=== PATIENT | male | born 1995 | race Two or more races ===

== ENCOUNTER 2025-06-21 15:38 | Outpatient (AMB) | payer OTHER, SELFPAY ==
--- OUTSIDE RECORDS SUMMARY | 2024-04-29 12:00 | XMS_ITS ---
Author Organization [facility] Address [address] [facility] [place] [address] Care Team Providers Care Director Industrial Nursing Name Role Phone Vicky Mcfarland Primary Care Provider [phone] REASON FOR VISIT CPE Encounters Encounter Location Date Provider Diagnosis [facility] Jessica [address] [place] [address] 04/29/20 24 Vicky Mcfarland Plan Of Treatment No Information Progress Notes * GLORIA LARSONKENNAOB:1995 (30 yo M)Acc No.[id number]:04/29/2024 Patient: LOR AGUILAR Provider: Obdulio Mcfarland MD :1995 A ge:29 Y S ex:Male Date:04/29/2024 Address:[address] [place] [address], [address], [facility] Subjective: * Chief Complaints: * 1 . CPE. * Medical History: Objective: * Vitals: Assessment: Plan: * Treatment: * Images: Billing Information: * Visit Code: * Procedure Codes: Care Plan Details* * Electronic signature of Vicky aguero MD on 06/21/2025 at 09:45 PM EDT Sign off status: Pending * Provider: Obdulio Mcfarland MD Date: 0 04/29/2024 Generated for Vashti guerrero/Fide/eTbettysmitting on: 09:45 PM EDT
--- OUTSIDE RECORDS SUMMARY | 2024-06-16 12:15 | XMS_ITS ---
Author Organization [facility] Address [address] [facility] [address] Care Team Providers Care Industrial Boilermaker Name Role Phone Vicky Mcfarland Primary Care Provider REASON FOR VISIT 1 month f/u Encounters Encounter Location Date Provider Diagnosis [facility] Jessica [address] [place] [address] 06/16/20 Vicky Mcfarland Plan Of Treatment No Information Progress Notes * GLORIA LARSONKENNAOB:1995 (30 yo M)Acc No.[id number]:06/16/2024 Progress Notes Patient: LOR AGUILAR Provider: Obdulio Mcfarland MD :1995 A ge:29 Y S ex:Male Date:06/16/2024 Address:[address] [place] [address], [address], [place], [place] Subjective: * Chief Complaints: * 1 . 1 month f/u. * Medical History: Objective: * Vitals: Assessment: Plan: * Treatment: * Images: Billing Information: * Visit Code: * Procedure Codes: Care Plan Details* * Electronic signature of Vicky aguero MD on 06/21/2025 at 09:46 PM EDT Sign off status: Pending * Provider: Obduilo Mcfarland MD Date: Generated for Vashti guerrero/Fide/eTransmitting on: 09:46 PM EDT
--- NOTE | 2025-06-21 15:46 | MHC.PC.OV ---
Vital Signs 06/21/25 16:04 Height 5 ft 7.52 in Weight 209 lb BMI 32.2 BP 129/65 Blood Pressure Location Lt brachial Position Sitting Respiration 16 Pulse 79 Pulse Source Pulse Oximeter Temp 97.9 F Temp Source Oral Pulse Oximetry (%) 98 Oxygen Delivery Method Room Air Intake Visit Reasons: MATERIAL COORDINATOR Anxiety Timber Trimmer Required: No Allergies No Known Allergies Allergy (Verified 06/21/25 15:46) Tobacco use date assessed: 06/21/25 Dental Screening Dental Screen Date: 06/21/25 Did you have a dental visit in the last 12 months?: Yes Did you have a dental problem in the last 6 months where you did not have access to dental care?: No Was dental information given to patient?: Patient has dentist HPI HPI Comments History of Present Illness Details Consent Patient was informed and verbally consented to the use of an ambient scribe for clinic note documentation during this visit. History of Present Illness The patient is a 30-year-old male presenting with exacerbation of anxiety symptoms. Generalized Anxiety Disorder: The patient reports a history of anxiety that has been present for most of his life, with a significant worsening over the past few months. He was previously prescribed buspirone 10 mg by his former physician, which he found helpful, but he has been off the medication for several months due to the closure of his previous doctor's office. The patient describes his anxiety as overwhelming, with persistent thoughts about various aspects of his life, including work and personal relationships, which have intensified recently. He has not sought therapy or seen a behavioral health consultant, partly due to personal life changes, including a breakup and moving out, which he initially managed but have since contributed to increased anxiety. 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 Vital signs: Within normal limits. HEENT: Normocephalic, atraumatic. PERRLA, EOMI. Conjunctiva clear, sclera anicteric. Oropharynx clear, mucous membranes moist. TMs intact bilaterally. Neck: Supple, no lymphadenopathy, no thyromegaly, no JVD or carotid bruits. Cardiovascular: RRR, normal S1/S2, no murmurs, rubs, or gallops. Peripheral pulses 2+ and symmetric. No edema. Respiratory: Lungs clear to auscultation bilaterally, no wheezes, rales, or rhonchi. Normal effort. Abdomen: Soft, non-tender, non-distended. Normoactive bowel sounds. No hepatosplenomegaly, no masses. MSK: Full range of motion, no joint swelling or deformity. Normal gait. Skin: Warm, dry, intact. No rashes, lesions, or pallor. Neuro: Alert and oriented x3. Cranial nerves II-XII intact. Strength 5/5 throughout. Sensation intact. Reflexes 2+ symmetric. Normal coordination and gait. Psych: Anxious mood and affect. Generalized anxiety disorder noted. Normal judgment and insight. Plan 1. Generalized Anxiety Disorder - Restart buspirone 10 mg and monitor response over the next two weeks. - Conduct blood tests to assess overall health status. - Referral to behavioral health for therapy and further management. - Follow-up appointment scheduled in two weeks to evaluate treatment efficacy and adjust as necessary. Discussion Notes I discussed with the patient the plan to restart buspirone and the importance of monitoring his symptoms over the next two weeks. We also talked about the need for blood tests to check his overall health and the referral to behavioral health for additional support. I emphasized the importance of follow-up in two weeks to assess the effectiveness of the treatment and make any necessary adjustments. Patient Instructions - Take buspirone 10 mg as prescribed and monitor for any changes in symptoms. - Attend the follow-up appointment in two weeks. - Complete blood tests as ordered. - Follow up with behavioral health as referred. Medical Decision Making The decision to restart buspirone was based on the patient's previous positive response to the medication and the current exacerbation of anxiety symptoms. Blood tests were ordered to rule out any underlying conditions that might be contributing to his symptoms. A referral to behavioral health was made to provide the patient with additional support and therapy options. Total time spent caring for the patient today was 30 minutes. This includes time spent before the visit reviewing the chart, time spent documenting, and time spent reviewing laboratory results, diagnostic imaging, medications, performing a medically necessary evaluation, counseling on diagnoses, care coordination, ordering appropriate tests, ordering appropriate medications. [facility] Family History (Updated 06/21/25 @ 16:08 by Ramses Shetty MA) Mother No problems noted. Father No problems noted. Social History Housing: House Patient Tobacco Use Status: Never used Tobacco service: No Current occupational status: employed Cognitive needs: No Hearing needs: No Vision needs: Yes (rx glasses) Questionnaire PHQ-9 Over the last 2 weeks, how often have you been bothered by any of the following problems? 1. Little interest or pleasure in doing things: several days 2. Feeling down, depressed, or hopeless: several days 3. Trouble falling or staying asleep, or sleeping too much: more than half the days 4. Feeling tired or having little energy: several days 5. Poor appetite or overeating: not at all 6. Feeling bad about yourself - or that you are a failure or have let yourself or your family down: several days 7. Trouble concentrating on things, such as reading the newspaper or watching television: several days 8. Moving or speaking so slowly that other people could have noticed. Or the opposite - being so fidgety or restless that you have been moving around a lot more than usual: not at all 9. Thoughts that you would be better off or of hurting yourself in some way: not at all Total score: 7 Source: Developed by Drs. Richard Winn, Mena Macias, Dominik Geiger and colleagues, with an educational familia from [employer] Thrive Questionnaire Date Thrive assessed: 06/21/25 I am a: Patient What is your living situation today?: I have a steady place to live Within the past 12 months, did the food you bought not last and you didn't have the money to get more?: Never true Within the past 12 months, did you worry whether your food would run out before you got money to buy more?: Never true Do you have trouble paying for medicines?: No Do you have trouble getting transportation to medical appointments?: Yes Do you have trouble paying your heating and electricity bill?: No Do you have trouble taking care of your child, family member or friend?: No Do you have trouble with day-to-day activities such as bathing, preparing meals, shopping, managing finances, etc.?: No Are you currently unemployed and looking for a job?: No Are you interested in more education?: No Please select the resources that you would like help with: None Currently or been in a relationship where the following occur: No concerns reported THRIVE Score: 1 AUDIT C Alcohol Use Questionnaire (AUDIT-C) 1. How often do you have a drink containing alcohol?: 2-4 times a month 2. How many drinks containing alcohol do you have on a typical day when you are drinking?: 3 or 4 3. How often do you have six or more drinks on one occasion?: Never Total Score: 3 SARAH-7 AMB Questionnaire SARAH-7 Date SARAH - 7 assessed: 06/21/25 Feeling nervous, anxious, or on edge: 3 = Nearly every day Not being able to stop or control worryin = Nearly every day Worrying too much about different things: 3 = Nearly every day Trouble relaxin = Nearly every day Being so restless that it is hard to sit still: 2 = More than half the days Becoming easily annoyed or irritable: 1 = Several days Feeling afraid as if something awful might happen: 3 = Nearly every day Total SARAH-7 score (0-4 normal; 5-9 mild; 10-14 moderate; 15-21 severe): 18 Source: Developed by Drs. Richard iWnn, Mena Macias, Dominik Geiger and colleagues, with an educational familia from [employer] Physical exam (Primary Care) Vital Signs: Last Vital Signs Temp 97.9 F 06/21/25 16:04 Pulse 79 06/21/25 16:04 Resp 16 06/21/25 16:04 BP 129/65 06/21/25 16:04 Pulse Ox 98 06/21/25 16:04 Oxygen Delivery Method Room Air 06/21/25 16:04 BMI result Body Mass Index 32.2 Tobacco/Smoking Status: Tobacco use Status Tobacco use date assessed 06/21/25 06/21/25 15:48 Patient Tobacco Use Status Never used Tobacco 06/21/25 15:48 PHQ-9: PHQ-9 Score PHQ-9: Total score 7 06/21/25 15:48 Thrive Assessment: Date of Thrive Assessment Date Thrive assessed 06/21/25 06/21/25 15:48 Currently or been in a relationship where the following occur: No concerns reported Coding Level of Care Code New Pt Level 4 (37327) Diagnoses Generalized anxiety disorder F41.1 Class 1 obesity E66.9 Assessment & Plan Assessment & Plan (1) Generalized anxiety disorder: Code(s): F41.1 - Generalized anxiety disorder (2) Class 1 obesity: Code(s): E66.9 - Obesity, unspecified Plan Orders: Orders Complete Blood Count Auto Diff Today Z13.9 - Encounter for screening, unspecified Comprehensive Met. Panel Today Z13.9 - Encounter for screening, unspecified Hepatitis B Surface Antigen Today Z13.9 - Encounter for screening, unspecified TSH reflex Free T4 Today Z13.9 - Encounter for screening, unspecified UA CC w/rflx Micro + Cult Today Z13.9 - Encounter for screening, unspecified HIV Ab/Ag Today Z13.9 - Encounter for screening, unspecified Magnesium Today Z13.9 - Encounter for screening, unspecified Vitamin D 1,25 dihydroxy Today Z13.9 - Encounter for screening, unspecified Hemoglobin A1c Today Z13.9 - Encounter for screening, unspecified Hepatitis B Surface Antibody Today Z13.9 - Encounter for screening, unspecified Hepatitis C Antibody Today Z13.9 - Encounter for screening, unspecified Lipid Panel Today Z13.9 - Encounter for screening, unspecified Vitamin B2 (Riboflavin) Today Z13.9 - Encounter for screening, unspecified Referrals Behavioral Health Referral F41.1 - Generalized anxiety disorder Medications: New buspirone 10 mg PO ONCE 30 tabs 0RF
[2025-06-21 16:04] VITALS: BP 129/65; PULSE 79; RESP 16; TEMP 36.6; O2SAT 98; BMI 32.2
--- OUTSIDE RECORDS SUMMARY | 2025-06-21 21:46 | XMS_ITS | Clinical Summary ---
Author Organization [facility] Address [address] [place] [address] Care Team Providers Care Knot Tier Name Role Phone Naomi Rosales MD Primary Care Provider [phone] Allergies No known active allergies Medications No known medications Social History Tobacco Use Types Packs/Day Years Used Date Smoking Tobacco: Never Smokeless Tobacco: Never Sex and Gender Information Value Date Recorded Sex Assigned at Not on file Legal Sex Male 5:47 PM EDT Gender Identity Not on file Sexual Orientation Not on file Last Filed Vital Signs Vital Sign Reading Time Taken Comments Blood Pressure 144/82 01/26/2020 5:57 PM EDT Pulse 104 01/26/2020 5:57 PM EDT Temperature 36.9 C (98.5 F) 01/26/2020 5:57 PM EDT Respiratory Rate - - Oxygen Saturation 97% 01/26/2020 5:57 PM EDT Inhaled Oxygen Concentration - - Weight - - Height - - Body Mass Index - - Plan of Treatment Health Maintenance Due Date Last Done Comments Hepatitis C Virus Screening 1995 HIV Screening 2010 DTaP/Tdap/Td Vaccines (1 - Tdap) 2016 Hepatitis B Vaccines (1 of 3 - 19+ 3-dose series) 2016 Influenza Vaccine 03/31/2025 COVID-19 Vaccine (2023-2 5 season) 2025 HPV Vaccines (No Doses Required) Completed Pneumococcal Vaccine: Pediat lew (0-5 Years) and At-Risk Patients (6 to 49 Years) Aged Out No longer eligible b ased on patient's age to complete this topic Insurance BLUE CROSS OUT OF STATE - HMO Care Teams Knot Tier Relationship Specialty Start Date End Date Naomi Rosales MD [address] [place] [id number] PCP - General Pediatric, General 01/26/20
--- OUTSIDE RECORDS SUMMARY | 2025-06-21 21:46 | XMS_ITS | Patient Health Record ---
Author Organization [facility] Address [address] [place] [address] Care Team Providers Care Stopper Grinder Name Role Phone Bruna Vicky Primary Care Provider [phone] Allergies Allergen (clinical drug ingredient) Drug/Non Drug Allergy documented on EMR Reaction Allergy Type Onset Date Status SEASONAL ALLERGIES (uncoded) Unknown Allergy Active Reason For Referral No Information Medications Medication SIG (Take, Route, Fr equency, Duration) Notes Start Date End Date Status busPIRone HCl 15 MG 1 tablet Orally Twic e a day; Duration: 30 days 05/13/2024 Active Social History Tobacco Use: Social History Observation Description Date Details (start date - stop date) Never Smoker NA - NA Tobacco use other than smoking: Question Answer Notes Are you an other tobacco user? M [facility] Tobacco Control (Standard) Question Answer Notes Tobacco use: Nonsmoker AUDIT-C (Standard) Question Answer Notes Did you have a drink containing alcohol in the p ast year? No Points 0 Interpretation Negative Problems Problem Type SNOMED Code ICD Code Onset Dates Problem Status W/U Status Risk Notes Problem Anxiety (21530481) Anxiety (F41.9) Active confirmed Problem Vitamin D deficiency (58829022) Vitamin D deficiency (E55.9) Active confirmed Problem Obesity (339144105) Obesity (BMI 30-39.9) (E66.9) Active confirmed Plan Of Treatment Pending Test Test Name Order Date EKG 05/13/2024 Insurance Providers Payer Name Payer Address Payer Phone Subscriber Number Group Number Insured Name Patient Relationship to Insured Coverage Start Date Coverage End Date [id number] Master [address] [place] [phone] [id number] LOR LARSON Self - patient is the insured
== END 2025-06-21 16:41 | disposition home or self-care (01) ==
LOC: HO.HMCFMS 15:39
PROVIDERS: PCP Student in an Organized Health Care Education/Training Program; Visit Provider Student in an Organized Health Care Education/Training Program
DX: F41.1 Generalized anxiety disorder (principal); E66.9 Obesity, unspecified

== ENCOUNTER 2025-07-03 08:56 | Outpatient (REF) | payer OTHER, SELFPAY ==
--- OUTSIDE RECORDS SUMMARY | 2024-04-29 11:00 | XMS_ITS ---
Author Organization [facility] Address [address] [facility] [place] [address] Care Team Providers Care Soaking Pit Operator Name Role Phone Vicky Mcfarland Primary Care Provider REASON FOR VISIT CPE Encounters Encounter Location Date Provider Diagnosis [facility] Jessica [address] [place] [address] 04/29/20 24 Vicky Mcfarland Plan Of Treatment No Information Progress Notes * GLORIA LARSONKENNAOB:1995 (30 yo M)Acc No.[id number]:04/29/2024 Patient: LOR AGUILAR Provider: Obdulio Mcfarland MD :1995 A ge:29 Y S ex:Male Date:04/29/2024 Address:[address] [place] [address], [address], [facility] Subjective: * Chief Complaints: * 1 . CPE. * Medical History: Objective: * Vitals: Assessment: Plan: * Treatment: * Images: Billing Information: * Visit Code: * Procedure Codes: Care Plan Details* * Electronic signature of Vicky augero MD on 07/03/2025 at 09:40 AM EST Sign off status: Pending * Provider: Obdulio Mcfarland MD Date: 0 04/29/2024 Generated for Vashti guerrero/Fide/Terranceitting on: 09/02/2024 09:40 AM EST
--- OUTSIDE RECORDS SUMMARY | 2024-06-16 11:15 | XMS_ITS ---
Author Organization [facility] Address [address] [facility] [place] [address] Care Team Providers Care Paper Mill Supervisor Name Role Phone Vicky Mcfarland Primary Care Provider [phone] REASON FOR VISIT 1 month f/u Encounters Encounter Location Date Provider Diagnosis [facility] Jessica [address] [place] [address] 06/16/20 Vicky Mcfarland Plan Of Treatment No Information Progress Notes * GLORIA LARSONKENNAOB:1995 (30 yo M)Acc No.[id number]:06/16/2024 Progress Notes Patient: LRO AGUILAR Provider: Obdulio Mcfarland MD :1995 A ge:29 Y S ex:Male Date:06/16/2024 Address:[address] [place] [address], [address], [place], [place] Subjective: * Chief Complaints: * 1 . 1 month f/u. * Medical History: Objective: * Vitals: Assessment: Plan: * Treatment: * Images: Billing Information: * Visit Code: * Procedure Codes: Care Plan Details* * Electronic signature of Vicky aguero MD on 07/03/2025 at 09:40 AM EST Sign off status: Pending * Provider: Obdulio Mcfarland MD Date: Generated for Vashti guerrero/Fide/eTbettysmitting on: 09/02/2024 09:40 AM EST
--- OUTSIDE RECORDS SUMMARY | 2025-07-03 09:40 | XMS_ITS | Clinical Summary ---
Author Organization [facility] Address [address] [place] [address] Care Team Providers Care Pancake Professional Name Role Phone Naomi Rosales MD Primary Care Provider [phone] Allergies No known active allergies Medications No [...] OUT OF STATE - HMO Care Teams Pancake Professional Relationship Specialty Start Date End Date Naomi Rosales MD [address] [place] [id number] PCP - General Pediatric, General 01/26/20
--- OUTSIDE RECORDS SUMMARY | 2025-07-03 09:41 | XMS_ITS | Patient Health Record ---
Author Organization [facility] Address [address] [place] [address] Care Team Providers Care Mobile Security Specialist Name Role Phone Bruna Vicky Primary Care Provider Allergies Allergen (clinical drug ingredient) Drug/Non Drug [...] Are you an other tobacco user? M [facility] Tobacco Control (Standard) Question Answer Notes Tobacco use: Nonsmoker AUDIT-C (Standard) Question Answer Notes Did you have a drink containing alcohol in the p ast year? No Points 0 Interpretation Negative Problems Problem Type SNOMED Code ICD Code Onset Dates Problem Status W/U Status Risk Notes Problem Anxiety (01116584) Anxiety (F41.9) Active confirmed Problem Vitamin D deficiency (24957183) Vitamin D deficiency (E55.9) Active confirmed Problem Obesity (480328729) Obesity (BMI 30-39.9) (E66.9) Active confirmed Plan Of Treatment Pending Test Test Name Order Date EKG 05/13/2024 Insurance Providers Payer Name Payer Address Payer Phone Subscriber Number Group Number Insured Name Patient Relationship to Insured Coverage Start Date Coverage End Date zzzCIGNA Master [address] [place] [phone] [id number] LOR LARSON Self - patient is the insured
[2025-07-03 13:07] LABS: MANUAL DIFF FLAG NO
[2025-07-03 13:09] LABS: Hematocrit 47.3 % (42.0-52.0); Hemoglobin 15.5 g/dl (14.0-18.0); Imm Gran Abs Auto 0.01 X10*3/uL (0.00-0.03); Imm Gran Pct Auto 0.2 % (0.0-0.4); Lymphocytes Absolute Auto 1.1 X10*3/uL (1.2-4.9); Mean Corpuscular HGB Conc 32.8 g/dl (31.0-36.0); Mean Corpuscular Hemoglobin 29.9 pg (27.0-33.0); Mean Corpuscular Volume 91.3 fL (80.0-98.0); NRBC Abs Auto 0.000 X10*3/uL (0.0-0.012); NRBC Pct Auto 0.0 /100WBC (0.0-0.2); Platelet Count 191 X10*3/uL (160-400); Red Blood Count 5.18 X10*6/uL (4.60-5.80); White Blood Count 4.8 X10*3/uL (4.8-10.8)
[2025-07-03 13:32] LABS: Appearance Urine Clear; Glucose Urine UA Negative (Negative); PH 6.0 (5.0-9.0); Specific Gravity - Urine 1.025 (1.005-1.025)
[2025-07-03 13:34] LABS: Alanine Aminotransferase 26 U/L (0-40); Albumin Level 4.5 g/dL (3.5-5.0); Alkaline Phosphatase 57 U/L (39-117); Anion Gap 7 (12-20); Aspartate Amino Transferase 22 U/L (5-37); Blood Urea Nitrogen 10 mg/dL (9-16); Calcium 9.2 mg/dL (8.4-10.2); Carbon Dioxide 30 mmol/L (22-29); Chloride 109 mmol/L (96-108); Cholesterol 126 mg/dL (<200); Estimated Glomerular Filt Rate > 60; HDL Cholesterol 35 mg/dL (>40); Magnesium 2.1 mg/dL (1.6-2.6); Potassium 4.0 mmol/L (3.3-5.1); Sodium 142 mmol/L (135-145); Total Protein 7.1 g/dL (6.5-8.0); Triglycerides 59 mg/dL (<150)
[2025-07-04 06:50] LABS: HBS Num1 2.13 mIU/mL (0-7.99); HBsAGNum1 0.47 S/CO (0.00-0.99); HIV Num 1 0.08 S/CO (0.00-0.99); Hepatitis B Surface Antigen Negative (Negative); ~HepC Num1 0.06 S/CO (0.00-0.79); ~Hepatitis B Surface Antibody NONREACTIVE (Nonreactive); ~Hepatitis C Antibody Nonreactive (Nonreactive)
[2025-07-08 13:18] LABS: VITAMIN D (1,25 OH) D3 47 pg/mL; Vit D (1,25-Dihydroxy) Total 47 pg/mL (18-72); Vitamin D (1,25 OH) D2 <8 pg/mL
== END 2025-07-03 08:57 | disposition home or self-care (01) ==
LOC: HO.HKASLDS 08:56
PROVIDERS: PCP Student in an Organized Health Care Education/Training Program; Visit Provider Student in an Organized Health Care Education/Training Program
DX: Z13.89 Encounter for screening for other disorder (principal); Z11.4 Encounter for screening for human immunodeficiency virus [HIV]; Z13.0 Encounter for screening for diseases of the blood and blood-forming organs and certain disorders involving the immune mechanism; Z13.29 Encounter for screening for other suspected endocrine disorder; Z13.1 Encounter for screening for diabetes mellitus; Z13.6 Encounter for screening for cardiovascular disorders
CPT/HCPCS: 36415; 80053; 80061; 81003; 82652; 83036; 83735; 84252; 84443; 85025; 86706; 86803; 87340; 87389

== ENCOUNTER 2025-07-07 09:43 | Outpatient (AMB) | payer OTHER, SELFPAY ==
--- OUTSIDE RECORDS SUMMARY | 2024-04-29 11:00 | XMS_ITS ---
Author Organization [facility] Address [address] [facility] [place] [address] Care Team Providers Care Cutter Hot Knife Name Role Phone Vicky Mcfarland Primary Care Provider REASON FOR VISIT CPE Encounters Encounter Location Date Provider Diagnosis [facility] Jessica [address] [place] [address] 04/29/20 24 Vicky Mcfraland Plan Of Treatment No Information Progress Notes * GLORIA LARSONKENNAOB:1995 (30 yo M)Acc No.[id number]:04/29/2024 Patient: LOR AGUILAR Provider: Obdulio Mcfarland MD :1995 A ge:29 Y S ex:Male Date:04/29/2024 Address:[address] [place] [address], [address], [facility] Subjective: * Chief Complaints: * 1 . CPE. * Medical History: Objective: * Vitals: Assessment: Plan: * Treatment: * Images: Billing Information: * Visit Code: * Procedure Codes: Care Plan Details* * Electronic signature of Vicky aguero MD on 07/07/2025 at 11:04 AM EST Sign off status: Pending * Provider: Obdulio Mcfarland MD Date: 0 04/29/2024 Generated for Vashti guerrero/Fide/Laura on: 09/06/2024 11:04 AM EST
--- OUTSIDE RECORDS SUMMARY | 2024-06-16 11:15 | XMS_ITS ---
Author Organization [facility] Address [address] [facility] [place] [address] Care Team Providers Care Shank Scourer Name Role Phone Vicky Mcfarland Primary Care Provider REASON FOR VISIT 1 month f/u Encounters Encounter Location Date Provider Diagnosis [facility] Jessica [address] [place] [address] 06/16/20 Vicky Mcfarland Plan Of Treatment No Information Progress Notes * GLORIA LARSONKENNAOB:1995 (30 yo M)Acc No.[id number]:06/16/2024 Progress Notes Patient: LOR AGUILAR Provider: Obdulio Mcfarland MD :1995 A ge:29 Y S ex:Male Date:06/16/2024 Address:[address] [place] [address], [address], [facility] Subjective: * Chief Complaints: * 1 . 1 month f/u. * Medical History: Objective: * Vitals: Assessment: Plan: * Treatment: * Images: Billing Information: * Visit Code: * Procedure Codes: Care Plan Details* * Electronic signature of Vicky aguero MD on 07/07/2025 at 11:05 AM EST Sign off status: Pending * Provider: Obdulio Mcfarland MD Date: Generated for Vashti guerrero/Fide/eTbettysmitting on: 09/06/2024 11:05 AM EST
--- NOTE | 2025-07-07 09:46 | A.OFFPC_ITS ---
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 Medication Management: The patient is on buspirone taken twice daily and ran out of his prescription. He notes that the medication takes 4-6 weeks for full effect but reports that he recently started to feel pretty good. Low HDL Cholesterol: Recent laboratory results revealed a low high-density lipoprotein (HDL) level of 35 mg/dL, with the normal range being above 40 mg/dL. Other lipid panel components, including triglycerides, total cholesterol, and low-density lipoprotein (LDL) cholesterol, were within normal limits. Medications: - buspirone taken twice daily. Diagnostic Results: - Labs: Hematology (CBC), sodium, potass ium, kidney function, A1c, calcium, magnesium, liver function tests, triglycerides, total cholesterol, LDL cholesterol, and thyroid function were all normal. - HDL cholesterol was low at 35 mg/dL (n ormal > 40 mg/dL). - Hepatitis B, Hepatitis C, and HIV test s were negative. - Vitamin B12 and Vitamin D results are pending. - Tests and Diagnostics: Urinalysis was normal. Past Medical History -generalized anxiety disorder Health Maintenance - Laboratory screening performed, includ ing CBC, CMP, A1c, lipid panel, thyroid studies, urinalysis, and infectious disease screening (Hepatitis B, C, and HIV). - Results were reviewed with the patient , noting all were normal except for a low HDL level of 35 mg/dL. - Pending labs include Vitamin B12 and V itamin D. [facility] Medical History (Updated 07/07/25 @ 13:05 by Corona Kate MD) Low HDL (under 40) Family History (Updated 06/21/25 @ 16:08 by Ramses Shetty MA) Mother No problems noted. Father No problems noted. Social History Housing: House Patient Tobacco Use Status: Never used Tobacco service: No Current occupational status: employed Cognitive needs: No Hearing needs: No Vision needs: Yes (rx glasses) Questionnaire Thrive Questionnaire Date Thrive assessed: 06/21/25 I am a: Patient What is your living situation today?: I have a steady place to live Within the past 12 months, did the food you bought not last and you didn't have the money to get more?: Never true Within the past 12 months, did you worry whether your food would run out before you got money to buy more?: Never true Do you have trouble paying for medicines?: No Do you have trouble getting transportation to medical appointments?: Yes Do you have trouble paying your heating and electricity bill?: No Do you have trouble taking care of your child, family member or friend?: No Do you have trouble with day-to-day activities such as bathing, preparing meals, shopping, managing finances, etc.?: No Are you currently unemployed and looking for a job?: No Are you interested in more education?: No Please select the resources that you would like help with: None Currently or been in a relationship where the following occur: No concerns reported THRIVE Score: 1 SARAH-7 AMB Questionnaire SARAH-7 Date SARAH - 7 assessed: 06/21/25 Source: Developed by Drs. Richard Winn, Mena Macias, Dominik Geiger and colleagues, with an educational familia from [employer]. Review of Systems Narrative Review of Systems - General: Reports feeling pretty good. 10-point ROS reviewed and negative except as noted in HPI Physical exam (Primary Care) Vital Signs: Last Vital Signs Temp 97.7 F 07/07/25 09:49 Pulse 75 07/07/25 09:49 Resp 16 07/07/25 09:49 BP 121/56 L 07/07/25 09:49 Pulse Ox 97 07/07/25 09:49 Oxygen Delivery Method Room Air 07/07/25 09:49 BMI result Body Mass Index 31.3 Tobacco/Smoking Status: Tobacco use Status Tobacco use date assessed 06/21/25 07/07/25 09:51 Patient Tobacco Use Status Never used Tobacco 07/07/25 09:51 Thrive Assessment: Date of Thrive Assessment Date Thrive assessed 06/21/25 07/07/25 09:51 Currently or been in a relationship where the following occur: No concerns reported Narrative Physical Exam General: Well-appearing, in no acute distress. Vital signs: Within normal limits. HEENT: Normocephalic, atraumatic. PERRLA, EOMI. Conjunctiva clear, sclera anic teric. Oropharynx clear, mucous membranes moist. TMs intact bilaterally. Neck: Supple, no lymphadenopathy, no thyromegaly, no JVD or carotid bruits. Cardiovascular: RRR, normal S1/S2, no murmurs, rubs, or gallops. Peripheral pulses 2+ and symmetric. No edema. Respiratory: Lungs clear to auscultation bilaterally, no wheezes, rales, or rhonchi. Normal effort. Abdomen: Soft, non-tender, non-distended. Normoactive bowel sounds. No hepatosplenomegaly, no masses. MSK: Full range of motion, no joint swelling or deformity. Normal gait. Skin: Warm, dry, intact. No rashes, lesions, or pallor. Neuro: Alert and oriented x3. Cranial nerves II-XII intact. Strength 5/5 throughout. Sensation intact. Reflexes 2+ symmetric. Normal coordination and gait. Psych: Appropriate mood and affect. Normal judgment and insight. Coding Level of Care Code Est Pt Level 3 (27802) Diagnoses Low HDL (under 40) E78.6 Generalized anxiety disorder F41.1 Class 1 obesity E66.9 Assessment & Plan Assessment & Plan (1) Low HDL (under 40): Code(s): E78.6 - Lipoprotein deficiency Category: Medical (2) Generalized anxiety disorder: Code(s): F41.1 - Generalized anxiety disorder (3) Class 1 obesity: Code(s): E66.9 - Obesity, unspecified Plan Consent Patient was informed and verbally consented to the use of an ambient scribe for clinic note documentation during this visit. Plan 1. Anxiety generalized - The patient reports feeling better on his current unspecified medication. - A 3-month prescription of his medication, to be taken twice daily, was sent to the pharmacy. - The patient will follow up in one month to assess the medication's continued efficacy. 2. Low Hdl Cholesterol - Laboratory results were reviewed with the patient, noting a low HDL level of 35 mg/dL. - lifestyle modifications discussed Discussion Notes I reviewed the patient's recent lab results with him, which were overall reassuring. I noted that his hematology, chemistries, A1c, liver function, and thyroid were normal, and his infectious disease panel for Hepatitis B, C, and HIV was negative. We discussed that his good cholesterol (HDL) was slightly low at 35, but his overall lipid profile was good. The patient reported he was feeling good on his current medication, for which he had run out. I informed him that I sent a 3-month supply of his medication, taken twice daily, to his pharmacy. We agreed to have a follow-up appointment in one month to check in on his progress with the medication. Patient Instructions - A 3-month supply of your medication has been sent to your pharmacy. - Continue to take your medication twice a day as prescribed. - Your lab results were generally good, with the exception of slightly low good cholesterol (HDL). - We will review your pending Vitamin B12 and Vitamin D results when they are available. - Please schedule a follow-up visit in one month to discuss how you are doing on the medication. Medical Decision Making The patient is a 30-year-old male who presented for a medication refill and review of his annual labs. He reported running out of his medication, which he takes twice daily, and noted subjective improvement in his well-being, consistent with the expected therapeutic timeline of the drug. Given his positive response and need for continuity of care, I have sent a 3-month prescription to his pharmacy. A review of his recent laboratory results was conducted. The results were largely unremarkable, showing normal hematologic, metabolic, renal, and hepatic function, as well as a normal A1c and thyroid level. Infectious disease screening was negative. A low HDL of 35 was noted, but in the context of an otherwise normal lipid panel, this does not require immediate pharmacological intervention. A follow-up in one month is appropriate to formally assess the medication's full effect and address any side effects. Total time spent caring for the patient today was 20 minutes. This includes time spent before the visit reviewing the chart, time spent documenting, and time spent reviewing laboratory results, diagnostic imaging, medications, performing a medically necessary evaluation, counseling on diagnoses, care coordination, ordering appropriate tests, ordering appropriate medications, review of tests performed by other providers, reporting test results with the patient, communication with other healthcare providers. Medications: Changed From buspirone 10 mg PO ONCE 30 tabs 0RF To buspirone 10 mg PO BID 180 tabs 0RF
[2025-07-07 09:49] VITALS: BP 121/56; PULSE 75; RESP 16; TEMP 36.5; O2SAT 97; BMI 31.3
--- OUTSIDE RECORDS SUMMARY | 2025-07-07 11:04 | XMS_ITS | Clinical Summary ---
Author Organization [facility] Address [address] [place] [address] Care Team Providers Care Moshgiach Name Role Phone Naomi Rosales MD Primary Care Provider [phone] Allergies No known active allergies Medications No [...] OUT OF STATE - HMO Care Teams Moshgiach Relationship Specialty Start Date End Date Naomi Rosales MD [address] [place] [id number] PCP - General Pediatric, General 01/26/20
--- OUTSIDE RECORDS SUMMARY | 2025-07-07 11:05 | XMS_ITS | Patient Health Record ---
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 M [facility] Tobacco Control (Standard) Question Answer Notes Tobacco use: Nonsmoker AUDIT-C (Standard) Question Answer Notes Did you have a drink containing alcohol in the p ast year? No Points 0 Interpretation Negative Problems Problem Type SNOMED Code ICD Code Onset Dates Problem Status W/U Status Risk Notes Problem Anxiety (75160975) Anxiety (F41.9) Active confirmed Problem Vitamin D deficiency (70900075) Vitamin D deficiency (E55.9) Active confirmed Problem Obesity (421533902) Obesity (BMI 30-39.9) (E66.9) Active confirmed Plan Of Treatment Pending Test Test Name Order Date EKG 05/13/2024 Insurance Providers Payer Name Payer Address Payer Phone Subscriber Number Group Number Insured Name Patient Relationship to Insured Coverage Start Date Coverage End Date [id number] Master [address] [place] [phone] [id number] LOR LARSON Self - patient is the insured
== END 2025-07-07 10:00 | disposition home or self-care (01) ==
PROVIDERS: PCP Student in an Organized Health Care Education/Training Program; Visit Provider Student in an Organized Health Care Education/Training Program
DX: E78.6 Lipoprotein deficiency (principal); F41.1 Generalized anxiety disorder; E66.9 Obesity, unspecified

== ENCOUNTER 2025-08-11 08:19 | Outpatient (AMB) | payer OTHER, SELFPAY ==
--- NOTE | 2025-08-11 08:30 | A.OFFPC_ITS ---
Vital Signs 08/11/25 08:34 Height 5 ft 7.52 in Weight 203 lb BMI 31.3 BP 108/57 L Blood Pressure Location Rt brachial Position Sitting Pulse 57 Pulse Source Pulse Oximeter Temp 98.1 F Temp Source Oral Pulse Oximetry (%) 97 Oxygen Delivery Method Room Air Intake Visit Reasons: 1 mo f/u Intake Note: Patient present for follow up. Sand Digger Required: No Accompanied by: Self / Same As Patient Allergies No Known Allergies Allergy (Verified 08/11/25 08:34) Medication List - Last Reconciled 08/11/25 by Corona Kate MD buspirone 15 mg PO BID Tobacco use date assessed: 06/21/25 Dental Screening Dental Screen Date: 06/21/25 HPI HPI Comments History of Present Illness Details History of Present Illness The patient is a 30 year old male presenting with medication management for anxiety. Anxiety Disorder: The patient has been taking buspirone 10 mg twice daily for approximately six weeks for anxiety. He reports that the medication is helping and his anxiety is less intense, but he feels he has hit a plateau in improvement. He continues to experience anxiety but feels he is on the right track. He is also receiving therapy with a therapist named Domenico Jean Baptiste, who is not affiliated with this practice. Medications: - Buspirone 10 mg taken twice daily for anxiety. 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 Past Medical History - Anxiety Health Maintenance - The patient is actively engaged in the rapy with Domenico Jean Baptiste to work through his anxiety. [facility] Medical History (Updated 08/11/25 @ 08:48 by Corona Kate MD) Anxiety Low HDL (under 40) Family History Mother No problems noted. Father No problems noted. Social History (Updated 08/11/25 @ 08:34 by Clay Rutledge CMA) Housing: House Alcohol intake: current Patient Tobacco Use Status: Never used Tobacco service: No Current occupational status: employed Cognitive needs: No Hearing needs: No Vision needs: Yes (rx glasses) Questionnaire PHQ-9 Over the last 2 weeks, how often have you been bothered by any of the following problems? 1. Little interest or pleasure in doing things: several days 2. Feeling down, depressed, or hopeless: several days 3. Trouble falling or staying asleep, or sleeping too much: more than half the days 4. Feeling tired or having little energy: several days 5. Poor appetite or overeating: not at all 6. Feeling bad about yourself - or that you are a failure or have let yourself or your family down: several days 7. Trouble concentrating on things, such as reading the newspaper or watching television: several days 8. Moving or speaking so slowly that other people could have noticed. Or the opposite - being so fidgety or restless that you have been moving around a lot more than usual: not at all 9. Thoughts that you would be better off or of hurting yourself in some way: not at all Total score: 7 Source: Developed by Drs. Richard Winn, Mena Macias, Dominik Geiger and colleagues, with an educational familia from [employer]. Thrive Questionnaire Date Thrive assessed: 06/21/25 I am a: Patient What is your living situation today?: I have a steady place to live Within the past 12 months, did the food you bought not last and you didn't have the money to get more?: Never true Within the past 12 months, did you worry whether your food would run out before you got money to buy more?: Never true Do you have trouble paying for medicines?: No Do you have trouble getting transportation to medical appointments?: Yes Do you have trouble paying your heating and electricity bill?: No Do you have trouble taking care of your child, family member or friend?: No Do you have trouble with day-to-day activities such as bathing, preparing meals, shopping, managing finances, etc.?: No Are you currently unemployed and looking for a job?: No Are you interested in more education?: No Please select the resources that you would like help with: None Currently or been in a relationship where the following occur: No concerns reported THRIVE Score: 1 AUDIT C Alcohol Use Questionnaire (AUDIT-C) 1. How often do you have a drink containing alcohol?: 2-4 times a month 2. How many drinks containing alcohol do you have on a typical day when you are drinking?: 3 or 4 3. How often do you have six or more drinks on one occasion?: Never Total Score: 3 SARAH-7 AMB Questionnaire SARAH-7 Date SARAH - 7 assessed: 06/21/25 Source: Developed by Drs. Richard Winn, Mena Macias, Dominik Geiger and colleagues, with an educational familia from [employer]. Review of Systems Narrative Review of Systems - Psychiatric: Reports ongoing, but less intense, anxiety. 10-point ROS reviewed and negative except as noted in HPI Physical exam (Primary Care) Vital Signs: Last Vital Signs Temp 98.1 F 08/11/25 08:34 Pulse 57 08/11/25 08:34 BP 108/57 L 08/11/25 08:34 Pulse Ox 97 08/11/25 08:34 Oxygen Delivery Method Room Air 08/11/25 08:34 BMI result Body Mass Index 31.3 Tobacco/Smoking Status: Tobacco use Status Tobacco use date assessed 06/21/25 08/11/25 08:32 Patient Tobacco Use Status Never used Tobacco 08/11/25 08:34 PHQ-9: PHQ-9 Score PHQ-9: Total score 7 08/11/25 08:32 Thrive Assessment: Date of Thrive Assessment Date Thrive assessed 06/21/25 08/11/25 08:32 Currently or been in a relationship where the following occur: No concerns reported Narrative Physical Exam General: Well-appearing, in no acute distress. Vital signs: Within normal limits. HEENT: Normocephalic, atraumatic. PERRLA, EOMI. Conjunctiva clear, sclera anicteric. Oropharynx clear, mucous membranes moist. TMs intact bilaterally. Neck: Supple, no lymphadenopathy, no thyromegaly, no JVD or carotid bruits. Cardiovascular: RRR, normal S1/S2, no murmurs, rubs, or gallops. Peripheral pulses 2+ and symmetric. No edema. Respiratory: Lungs clear to auscultation bilaterally, no wheezes, rales, or rhonchi. Normal effort. Abdomen: Soft, non-tender, non-distended. Normoactive bowel sounds. No hepatosplenomegaly, no masses. MSK: Full range of motion, no joint swelling or deformity. Normal gait. Skin: Warm, dry, intact. No rashes, lesions, or pallor. Neuro: Alert and oriented x3. Cranial nerves II-XII intact. Strength 5/5 throughout. Sensation intact. Reflexes 2+ symmetric. Normal coordination and gait. Psych: Appropriate mood and affect. Normal judgment and insight. Patient appears less anxious and jittery compared to previous visits. Coding Level of Care Code Est Pt Level 3 (80733) Add On Problem Visit Only Diagnoses Anxiety F41.9 Assessment & Plan Assessment & Plan (1) Anxiety: Code(s): F41.9 - Anxiety disorder, unspecified Category: Medical Plan Consent Patient was informed and verbally consented to the use of an ambient scribe for clinic note documentation during this visit. Plan 1. Anxiety Disorder - The patient reports some improvement in his anxiety on buspirone 10 mg twice daily but feels he has reached a plateau. - He appears less anxious and jittery on observation. - The patient agreed to increase the medication dosage. - Discontinue buspirone 10 mg. - Start buspirone 15 mg twice daily; a 30-day supply of 60 tablets will be prescribed. - Continue with therapy. - Follow up as needed to reassess symptoms. Discussion Notes I discussed the patient's anxiety symptoms and his experience with buspirone over the past six weeks. I noted a visible improvement in his anxiety level, observing that he appears less anxious and jittery. Based on his report of hitting a plateau and my observation of improvement, I recommended increasing his buspirone dose from 10 mg to 15 mg twice daily. The patient agreed to this change. We will follow up to assess his response, and I encouraged him to continue with therapy. Patient Instructions - Stop taking the buspirone 10 mg. - Start taking buspirone 15 mg twice a day. - Continue with your current therapy sessions. - We can talk again if you do not feel improvement with the new dose. Medical Decision Making The patient is a 30-year-old male here for a follow-up on his anxiety. He has been on buspirone 10 mg twice daily for about six weeks and reports partial improvement, stating his anxiety is less intense but still present, and he feels he has hit a wall with progress. On observation, he appears less anxious and less jittery than on his initial visit, indicating a positive response to the medication. Given the partial response and good tolerability, the decision was made to increase the buspirone dose to 15 mg twice daily to see if further benefit can be achieved. The patient continues to engage in therapy, which is an important part of his treatment plan. A follow-up will be arranged as needed to assess his response to the dose titration. Total Time Statement 20 min Total time spent caring for the patient today includes pre-visit chart review, documentation, review of laboratory and diagnostic imaging results, medication reconciliation, medically necessary evaluation, counseling on diagnoses, care coordination, ordering appropriate tests and medications, review of tests performed by other providers, reporting test results to the patient, and communication with other healthcare providers. Medications: New buspirone 15 mg PO BID 60 tabs 0RF Discontinued buspirone Discontinued Reason: Doctor's Order 10 mg PO BID 180 tabs 0RF
[2025-08-11 08:34] VITALS: BP 108/57; PULSE 57; TEMP 36.7; O2SAT 97; BMI 31.3
== END 2025-08-11 08:47 | disposition home or self-care (01) ==
LOC: HO.HMCFMS 08:20
PROVIDERS: PCP Student in an Organized Health Care Education/Training Program; Visit Provider Student in an Organized Health Care Education/Training Program
DX: F41.9 Anxiety disorder, unspecified (principal)